=== PATIENT | female | born 1980 | race African-American/Black ===

== ENCOUNTER 2021-04-30 20:13 | Emergency (ER) | payer OTHER | END 2021-04-30 22:08 | disposition home or self-care (01) | LOC: JVIRT 20:13 | DX: Z20.822 Contact with and (suspected) exposure to COVID-19 (principal) | CPT/HCPCS: C9803; Q3014-GT; U0003; U0005 ==

== ENCOUNTER 2024-01-07 04:12 | Day surgery (SDC) | payer OTHER ==
[2023-12-30 13:24] VITALS: BMI 39.1
[2024-01-07] MEDS ORDERED: LIDOCAINE HCL/PF 1% SDV 5ML VIAL ONE (07:23)
[2024-01-07 08:42] VITALS: PULSE 71
[2024-01-07] MEDS: BUPIVACAINE HCL/PF 0.5% (5MG/ML) 10 ML VIAL IJ ONE (09:57)
[2024-01-07] MEDS ORDERED: ACETAMINOPHEN 500 MG TABLET (FP) PO PRN (10:00)
[2024-01-07 10:20] VITALS: BP 122/81; RESP 20; TEMP 97.2
== END 2024-01-07 10:14 | disposition home or self-care (01) ==
LOC: JASU-SURG 04:12
PROVIDERS: ATTEND Pain Medicine Pain Medicine
PROC: 3E0T33Z Introduction of Anti-inflammatory into Peripheral Nerves and Plexi, Percutaneous Approach (ICD-10-PCS; 2024-01-07)
PROC: 3E0T3BZ Introduction of Anesthetic Agent into Peripheral Nerves and Plexi, Percutaneous Approach (ICD-10-PCS; principal; 2024-01-07 10:00)
DX: M47.812 Spondylosis without myelopathy or radiculopathy, cervical region (principal)
CPT/HCPCS: 76000-TC-FY; 81025

== ENCOUNTER 2024-10-27 06:16 | Day surgery (SDC) | payer OTHER ==
[2024-10-27 07:14] VITALS: RESP 18; TEMP 97.5
[2024-10-27] MEDS: BUPIVACAINE HCL/PF 0.5% (5MG/ML) 10 ML VIAL IJ ONE ×2 (08:50→09:08)
[2024-10-27 09:27] VITALS: BP 122/72; PULSE 56
[2024-10-27] MEDS ORDERED: ACETAMINOPHEN 500 MG TABLET (FP) PO PRN (20:57)
== END 2024-10-27 10:00 | disposition home or self-care (01) ==
LOC: JASU-SURG 06:16
PROVIDERS: ATTEND Pain Medicine Pain Medicine
PROC: 3E0T3BZ Introduction of Anesthetic Agent into Peripheral Nerves and Plexi, Percutaneous Approach (ICD-10-PCS; principal; 2024-10-27 08:30)
DX: M47.812 Spondylosis without myelopathy or radiculopathy, cervical region (principal)
CPT/HCPCS: 76000-TC-FY; 81025